=== PATIENT | male | born 1965 | race Caucasian/White ===

== ENCOUNTER 2016-09-24 22:12 | Emergency (ER) | payer OTHER ==
[2016-09-24] MEDS ORDERED: HYDROcod/ACETAM 5/325 MG TABLET PO STA (22:49)
[2016-09-24] MEDS ORDERED: HYDROcod/ACETAM 5/325 MG TABLET ONE (22:53)
[2016-09-24] MEDS ORDERED: HYDROcod/ACET 5/325 Prepack 6 PO ONE ×2 (23:00→23:04)
== END 2016-09-24 23:17 | disposition home or self-care (01) ==
DX: S91.331A Puncture wound without foreign body, right foot, initial encounter (principal); W45.8XXA Other foreign body or object entering through skin, initial encounter; Y92.019 Unspecified place in single-family (private) house as the place of occurrence of the external cause; E78.00 Pure hypercholesterolemia, unspecified
CPT/HCPCS: 99282; 99283; A9270

== ENCOUNTER 2017-04-03 12:42 | Outpatient (CLI) | payer OTHER ==
--- NOTE | 2017-04-03 16:34 | MRI Report ---
EXAM: LEFT SHOULDER MRI WITHOUT CONTRAST EXAM DATE: 04/03/2017 01:30 PM. CLINICAL HISTORY: Increased left shoulder pain. COMPARISON: None. TECHNIQUE: Multiplanar, multisequence T1-weighted and fluid-sensitive sequences of the shoulder witho ut contrast. Other: None. FINDINGS: Acromioclavicular Region: The acromion is moderate acromioclavicular osteoarthropathy is evidenced by bony hypertrophy. The acromioclavicular joint is unremarkable. The coracoacromial and coracoclavicul ar ligaments are intact. A minimal amount of fluid is in the subacromial/subdeltoid bursa. Glenohumeral Region: No subluxation. No effusion or loose bodies. The articular cartilage is unremark able. The glenohumeral ligaments and joint capsule are unremarkable. Bone Marrow: No fractures. There is cyst formation in the greater tuberosity. Labrum: The labrum is unremarkable on this nonarthrographic study. Musculature/Rotator Cuff: The subscapularis, supraspinatus, infraspinatus, and teres minor tendons ar e intact. No edema or fatty atrophy. Biceps Tendon: The long head of the biceps tendon and biceps jorge are intact. Other: The subcutaneous tissues are unremarkable. IMPRESSION: 1. Moderate acromioclavicular osteoarthropathy. 2. Minimal subacromial/subdeltoid bursitis. [facility] MUSCULOSKELETAL [facility]IOLOG[facility] SECTION Referring Provider Line: [phone] SITE ID: [id number]
== END 2017-04-03 12:43 | disposition home or self-care (01) ==
LOC: DI 12:42
PROVIDERS: ATTEND Internal Medicine
DX: M25.512 Pain in left shoulder (principal); M19.012 Primary osteoarthritis, left shoulder; M75.52 Bursitis of left shoulder

== ENCOUNTER 2017-06-23 14:06 | Emergency (ER) | payer OTHER ==
[2017-06-23 14:43] LABS: BASOPHILS # (AUTO) 0.1 10^3/uL (0.0-0.1); BASOPHILS % (AUTO) 0.9 %; EOSINOPHILS # (AUTO) 0.1 10^3/uL (0.0-0.7); EOSINOPHILS % (AUTO) 2.4 %; HCT - HEMATOCRIT 43.8 % (42.0-52.0); HGB - HEMOGLOBIN 14.5 g/dL (14.0-18.0); LYMPHOCYTES # (AUTO) 1.3 10^3/uL (1.5-3.5); LYMPHOCYTES % (AUTO) 21.4 %; MEAN CORPUSCULAR HEMOGLOBIN 29.8 pg (27.0-31.0); MEAN CORPUSCULAR HGB CONC 33.1 g/dL (32.0-36.0); MEAN PLATELET VOLUME 9.2 fL (7.4-11.4); MONOCYTES # (AUTO) 0.6 10^3/uL (0.0-1.0); MONOCYTES % (AUTO) 9.9 %; NEUTROPHILS # (AUTO) 4.1 10^3/uL (1.5-6.6); NEUTROPHILS % (AUTO) 65.4 %; NUCLEATED RED BLOOD CELLS AUTO 0.1 /100WBC; RED BLOOD COUNT 4.87 10^6/uL (4.70-6.10); RED CELL DISTRIBUTION WIDTH 13.8 % (12.0-15.0); UNCORRECTED WHITE BLOOD COUNT 6.2 x10^3/uL; WHITE BLOOD COUNT 6.2 x10^3/uL (4.8-10.8)
--- NOTE | 2017-06-23 14:48 | ED Physician Documentation ---
PD HPI ABD PAIN - Stated complaint Stated Complaint: NAUSA/WEAVER - Chief complaint Chief Complaint: Abd Pain - History obtained from History obtained from: Patient, Family - History of Present Illness Timing - onset: Other (51-year-old gentleman with chronic back pain and migraines who presents with a different and much worse than normal headache with sweats that started last night with intermittent right-sided numbness of the arm and leg and associated upper abdominal pain radiating to the back. He has a history of perforated esophageal ulcers and resultant surgery from same many years ago.) Review of Systems Ten Systems: 10 systems reviewed and negative Constitutional: reports: Chills, Fatigue, Sweats. denies: Fever Ears: reports: Tinnitus/ringing. denies: Ear pain Nose: denies: Rhinorrhea / runny nose Throat: denies: Sore throat Cardiac: denies: Palpitations Respiratory: denies: Dyspnea, Cough GI: reports: Abdominal Pain, Nausea. denies: Vomiting PD PAST MEDICAL HISTORY - Past Medical History Cardiovascular: High cholesterol Endocrine/Autoimmune: None Psych: Post traumatic stress disorder - Past Surgical History Past Surgical History: No - Present Medications Home Medications: Ambulatory Orders Medication Instructions Recorded Confirmed Venlafaxine [Effexor] 75 mg PO BID 09/24/16 06/23/17 Meloxicam 15 mg PO DAILY 06/23/17 06/23/17 Metoclopramide [Reglan] 10 mg PO Q6H PRN #20 tablet 06/23/17 Naproxen [Naprosyn] 06/23/17 Omeprazole 20 mg PO DAILY 06/23/17 06/23/17 Topiramate [Topamax] 06/23/17 - Allergies Allergies/Adverse Reactions: Allergies Allergy/AdvReac Type Severity Reaction Status Date / Time simvastatin Allergy Rash Verified 06/23/17 14:13 - Social History Does the pt smoke?: No Smoking Status: Never smoker Does the pt drink ETOH?: No Does the pt have substance abuse?: No - Family History Family history: reports: Non contributory - Immunizations Immunizations: TDAP >10years/unknown PD ED PE NORMAL - Vitals Vital signs reviewed: Yes (Hypertensive) - General General: Alert and oriented X 3, No acute distress - HEENT HEENT: PERRL, EOMI, Pharynx benign - Neck Neck: Supple, no meningeal sign, No bony TTP - Cardiac Cardiac: RRR, No murmur - Respiratory Respiratory: No respiratory distress, Clear bilaterally - Abdomen Abdomen: Normal bowel sounds, Soft, Non tender - Back Back: No CVA TTP, No spinal TTP - Derm Derm: Normal color, Warm and dry - Extremities Extremities: No edema, No calf tenderness / cord - Neuro Neuro: Alert and oriented X 3, creative developer 2-12 intact, No motor deficit, No sensory deficit, Other (NIHSS zero at 1440) - Psych Psych: Normal mood, Normal affect Results - Vitals Vitals: Vital Signs - 24 hr 06/23/17 06/23/17 06/23/17 14:14 16:09 17:35 Temperature 36.3 C L Heart Rate 102 H 57 L 63 Respiratory 18 18 15 Rate Blood Pressure 171/100 H 183/94 H 146/97 H O2 Saturation 98 100 96 Oxygen O2 Source Room air - EKG (time done) 1503 Rate: Rate (enter#) (57) Rhythm: NSR [place]: Normal Intervals: Normal NM QRS: Normal Ischemia: Q waves (inferior) Computer interpretation: Agree with computer - Labs Labs: Laboratory Tests 06/23/17 06/23/17 06/23/17 14:35 14:35 14:35 WBC 6.2 RBC 4.87 Hgb 14.5 Hct 43.8 MCV 90.0 MCH 29.8 MCHC 33.1 RDW 13.8 Plt Count 229 MPV 9.2 Neut # 4.1 Lymph # 1.3 L [place] # 0.6 Eos # 0.1 Baso # 0.1 Absolute Nucleated RBC 0.01 Nucleated RBC % 0.1 Sodium 141 Potassium 3.6 Chloride 110 Carbon Dioxide 20 L Anion Gap 11.0 BUN 17 Creatinine 0.9 Estimated GFR (MDRD) 89 Glucose 103 H Calcium 9.8 Total Bilirubin 0.5 AST 27 ALT 34 Alkaline Phosphatase 76 Troponin I < 0.04 Total Protein 8.3 H Albumin 5.0 Globulin 3.3 Albumin/Globulin Ratio 1.5 Lipase 45 Urine Color Urine Clarity Urine pH Ur Specific [place] Urine Protein Urine Glucose (UA) Urine Ketones Urine Occult Blood Urine Nitrite Urine Bilirubin Urine Urobilinogen Ur Leukocyte Esterase Ur Microscopic Review Urine Culture Comments 06/23/17 16:00 WBC RBC Hgb Hct MCV MCH MCHC RDW Plt Count MPV Neut # Lymph # [place] # Eos # Baso # Absolute Nucleated RBC Nucleated RBC % Sodium Potassium Chloride Carbon Dioxide Anion Gap BUN Creatinine Estimated GFR (MDRD) Glucose Calcium Total Bilirubin AST ALT Alkaline Phosphatase Troponin I Total Protein Albumin Globulin Albumin/Globulin Ratio Lipase Urine Color YELLOW Urine Clarity CLEAR Urine pH 7.0 Ur Specific [place] 1.015 Urine Protein NEGATIVE Urine Glucose (UA) NEGATIVE Urine Ketones NEGATIVE Urine Occult Blood NEGATIVE Urine Nitrite NEGATIVE Urine Bilirubin NEGATIVE Urine Urobilinogen 0.2 (NORMAL) Ur Leukocyte Esterase NEGATIVE Ur Microscopic Review NOT INDICATED Urine Culture Comments NOT INDICATED - Rads (name of study) CT Angio Chest/abd Radiology: EMP read contemporaneously (Distended stomach, mild left hydronephrosis without renal calculus.) PD MEDICAL DECISION MAKING - ED course ED course: 51-year-old gentleman presents with worse than normal headache, he does have chronic migraines, also chest and back pain. This was concerning for vascular etiology and CT of the head without contrast, chest abdomen and pelvis angio protocol all were done without relevant findings with the exception of a dilated stomach for which he was administered Reglan. Prior to this had received Imitrex subcu which had helped with the headache. Morphine prior to that which was also helpful. The Reglan was very helpful for his upper abdominal pain, he could have gastric outlet obstruction or gastroparesis based on his CAT scan. He is advised to follow-up with his doctor for repeat upper endoscopy, it has been about 20 years. Departure - Departure Disposition: 01 Home, Self Care Clinical Impression: Abdominal pain Qualifiers: Abdominal location: epigastric Qualified Code(s): R10.13 - Epigastric pain Head ache Qualifiers: Headache type: unspecified Headache chronicity pattern: acute headache Intractability: not intractable Qualified Code(s): R51 - Headache Condition: Good Record reviewed to determine appropriate education?: Yes Instructions: Abdominal Pain, ED Headache Migraine Prescriptions: Metoclopramide [Reglan] 10 mg PO Q6H PRN #20 tablet PRN Reason: Nausea / Vomiting Comments: Follow-up with your physician as discussed. I would recommend evaluation for an upper endoscopy based on the fact that your CAT scan did show very dilated stomach and you had relief with metoclopramide. He also have mild hydronephrosis on the left of unclear etiology without kidney stone. Your lab work including CBC, CMP, troponin, and urinalysis were unremarkable. Discharge Date/Time: 06/23/17 18:05
[2017-06-23 14:57] LABS: ALBUMIN/GLOBULIN RATIO 1.5 (1.0-2.2); BILIRUBIN,TOTAL 0.5 mg/dL (0.2-1.0); CALCIUM 9.8 mg/dL (8.5-10.3); CREATININE 0.9 mg/dL (0.6-1.2); POTASSIUM 3.6 mmol/L (3.5-5.0); TOTAL PROTEIN 8.3 g/dL (6.7-8.2)
[2017-06-23] MEDS ORDERED: MORPHINE 10 MG/ML VIAL IVP STA ×2 (14:58→17:10)
[2017-06-23] MEDS ORDERED: MORPHINE 10 MG/ML VIAL ONE ×2 (15:09→17:21)
[2017-06-23] MEDS ORDERED: IOPAMIDOL-300 100 ML VIAL ONE (15:21)
[2017-06-23] MEDS ORDERED: IOPAMIDOL-300 100 ML VIAL IVP ONE (15:46)
--- NOTE | 2017-06-23 15:56 | CT Preliminary Report ---
Exam: CT HEAD W/O IMPRESSION: 1. Mild nonfocal, nonspecific frontal lobe white matter disease. Differential diagnosis includes micr oangiopathy and other nonfocal white matter disease. 2. No intracranial hemorrhage, mass effect, or localizing edema. [facility] SITE ID: [id number]
--- NOTE | 2017-06-23 15:58 | CT Report ---
EXAM: CT HEAD EXAM DATE: 06/23/2017 03:36 PM. CLINICAL HISTORY: Headache. COMPARISON: None. TECHNIQUE: Multiaxial CT images were obtained from the foramen magnum to the vertex. IV contrast: Non e. Reformats: Coronal. In accordance with CT protocol optimization, one or more of the following dose reduction techniques w ere utilized for this exam: automated exposure control, adjustment of mA and/or KV based on patient s ize, or use of iterative reconstructive technique. FINDINGS: Parenchyma: There is mild frontal lobe periventricular white matter hypodensity. Negative for intracr anial acute hemorrhage. No midline shift or mass effect. Extraaxial Spaces: Normal for age. No subdural or epidural collections identified. Ventricles: Normal in size and position. Sinuses and orbits: Imaged paranasal sinuses, orbits, and mastoids show no significant abnormality. Bones: No evidence of fracture or calvarial defect. Other: None. IMPRESSION: 1. Mild nonfocal, nonspecific frontal lobe white matter disease. Differential diagnosis includes micr oangiopathy and other nonfocal white matter disease. 2. No intracranial hemorrhage, mass effect, or localizing edema. [facility] Referring Provider Line: [phone] SITE ID: [id number]
[2017-06-23 16:17] LABS: BILIRUBIN,URINE NEGATIVE (NEGATIVE); UA CHARGE (STRIP ONLY) YES; UR CULTURE IF IND NOT INDICATED
[2017-06-23] MEDS ORDERED: SUMAtriptan 6 MG/0.5 ML VIAL SUBQ STA (16:17)
[2017-06-23] MEDS ORDERED: SUMAtriptan 6 MG/0.5 ML VIAL SUBQ ONE (16:32)
--- NOTE | 2017-06-23 16:36 | CT Preliminary Report ---
Exam: CT CHEST ANGIO (AORTA) IMPRESSION: 1. No aneurysm or dissection. 2. Very distended stomach with large air-fluid level. Small and large bowel appears within normal marley its. The appendix is not seen. 3. Mild left hydronephrosis and dilated renal pelvis with decompressed ureter, could represent ureter opelvic junction obstruction. No urinary tract calculi are seen. [facility] SITE ID: [id number]
--- NOTE | 2017-06-23 16:36 | CT Preliminary Report ---
Exam: CT ABDOMEN/PELVIS ANGIO IMPRESSION: 1. No aneurysm or dissection. 2. Very distended stomach with large air-fluid level. Small and large bowel appears within normal marley its. The appendix is not seen. 3. Mild left hydronephrosis and dilated renal pelvis with decompressed ureter, could represent ureter opelvic junction obstruction. No urinary tract calculi are seen. [facility] SITE ID: [id number]
--- NOTE | 2017-06-23 16:39 | CT Report ---
<H1.> EXAM: CT ANGIOGRAM CHEST, ABDOMEN AND PELVIS EXAM DATE: 06/23/2017 03:51 PM. CLINICAL HISTORY: Chest/abdomen/back pain. COMPARISONS: None. TECHNIQUE: Routine axial helical CT angiographic imaging was performed through the chest, abdomen, and pelvis. I V Contrast: 100 mL Isovue 300. Reconstructions: Coronal, sagittal, and 3D MIP reconstructions of the aorta. In accordance with CT protocol optimization, one or more of the following dose reduction techniques w ere utilized for this exam: automated exposure control, adjustment of mA and/or KV based on patient s ize, or use of iterative reconstructive technique. FINDINGS: Vascular Structures: Normal. No aneurysm, dissection, or significant atherosclerotic disease of the t horacic aorta, abdominal aorta, or iliac arteries. The visualized pulmonary, mesenteric, and solid or christian vascular structures are also within normal limits. Lungs/Pleura: No consolidation, nodules, or edema. No effusions or pneumothorax. Mediastinum: Normal. No cardiac enlargement or adenopathy. Abdominal Organs: Liver: Multiple small scattered nonspecific low densities seen in the liver, larges t in the left hepatic lobe measuring 1.5 cm, could represent liver cyst. Gallbladder: Normal. Bile ducts: Normal. Pancreas: Normal. Spleen: Normal. Adrenals: Normal. Kidneys: Mild left hydronephrosis and dilated renal pelvis with decompressed ureter, could represent ureteropelvic junction obstruction. No urinary tract calculi are seen. Right kidney appears unremarka ble. Peritoneal Cavity: Very distended stomach with large air-fluid level. Small and large bowel appears w ithin normal limits. The appendix is not seen. No free fluid or free air. No abscess. Pelvic Organs: Normal. The bladder and visualized pelvic organs are within normal limits. Bones: No acute bone findings. IMPRESSION: 1. No aneurysm or dissection. 2. Very distended stomach with large air-fluid level. Small and large bowel appears within normal marley its. The appendix is not seen. 3. Mild left hydronephrosis and dilated renal pelvis with decompressed ureter, could represent ureter opelvic junction obstruction. No urinary tract calculi are seen. [facility] Referring Provider Line: [phone] SITE ID: [id number]
[2017-06-23] MEDS ORDERED: METOCLOPRAMIDE 10 MG/2 ML VIAL IVP STA (17:10)
[2017-06-23] MEDS ORDERED: METOCLOPRAMIDE 10 MG/2 ML VIAL ONE (17:21)
[2017-06-23 17:38] VITALS: BP 146/97
== END 2017-06-23 18:05 | disposition home or self-care (01) ==
LOC: ED 14:06
DX: R51 Headache (principal); R10.13 Epigastric pain; N13.30 Unspecified hydronephrosis; E78.00 Pure hypercholesterolemia, unspecified
CPT/HCPCS: 36415; 70450; 71275; 74174; 80053; 81003; 83690; 84484; 85025; 93005; 96372; 96374; 96375; 96376; 99283; 99285; Q9967; 81001; 87086

== ENCOUNTER 2017-07-21 12:59 | Outpatient (CLI) | payer OTHER ==
--- NOTE | 2017-07-21 16:14 | MRI Report ---
EXAM: LEFT KNEE MRI WITHOUT CONTRAST EXAM DATE: 07/21/2017 01:50 PM. CLINICAL HISTORY: Left knee pain. COMPARISON: None. TECHNIQUE: Multiplanar, multisequence T1-weighted and fluid-sensitive sequences of the knee without c ontrast. Other: None. FINDINGS: Bones: No fractures or subluxations. No marrow edema. No bone lesions. Articular Cartilage: Unremarkable. Medial Meniscus: The medial meniscus is intact. Lateral Meniscus: The lateral meniscus is intact. Cruciate Ligaments: The anterior and posterior cruciate ligaments are intact. Collateral Ligaments: The medial collateral and lateral collateral ligamentous structures are intact. Tendons: The quadriceps, patellar, semimembranosus, and popliteus tendons are unremarkable. Musculature: No edema or fatty atrophy. Other: No effusion. No popliteal cyst. No loose bodies. In the intercondylar notch along the posteri or margin of the distal ACL, a small cystic structure is present. Please see series 501 image 15, ser ies 401 image 15. This measures about 9 mm maximally. The medial and lateral retinacula are intact. T he subcutaneous tissues and fat pads are unremarkable. IMPRESSION: 1. Menisci, cruciates and collaterals appear unremarkable. Bones and articular surfaces also appear n ormal. No popliteal cyst or loose bodies. 2. In the intercondylar notch at the posterior margin of the distal ACL, there is a small cystic stru cture which is probably a benign ganglion. No convincing evidence for impingement. The posterior late ral meniscus is normal at this level without evidence for tear. [facility] MUSCULOSKELETAL RADIOLOGY SECTION Referring Provider Line: [phone] SITE ID: [id number]
== END 2017-07-21 13:00 | disposition home or self-care (01) ==
LOC: DI 12:59
PROVIDERS: ATTEND Internal Medicine
DX: M25.562 Pain in left knee (principal); R22.42 Localized swelling, mass and lump, left lower limb

== ENCOUNTER 2017-08-04 13:25 | Outpatient (CLI) | payer OTHER | END 2017-08-04 13:26 | disposition home or self-care (01) | LOC: SC 13:25 | PROVIDERS: ATTEND Internal Medicine Pulmonary Disease | DX: G47.33 Obstructive sleep apnea (adult) (pediatric) (principal) | CPT/HCPCS: 99203; 99212 ==

== ENCOUNTER 2017-09-28 13:01 | Outpatient (CLI) | payer OTHER | END 2017-09-28 13:02 | disposition home or self-care (01) | LOC: SC 13:01 | PROVIDERS: ATTEND Internal Medicine Pulmonary Disease | DX: G47.33 Obstructive sleep apnea (adult) (pediatric) (principal) | CPT/HCPCS: 99212; 99213 ==

== ENCOUNTER 2017-10-14 21:36 | Outpatient (CLI) | payer OTHER | END 2017-10-14 21:37 | disposition home or self-care (01) | LOC: SC 21:36 | PROVIDERS: ATTEND Internal Medicine Pulmonary Disease | DX: G47.33 Obstructive sleep apnea (adult) (pediatric) (principal) | CPT/HCPCS: 95811 ==

== ENCOUNTER 2017-11-11 16:24 | Outpatient (CLI) | payer OTHER ==
[~2017-11-11 16:24] MED LIST: GADOBUTROL 10 MMOL/10 ML VIAL ONE
[2017-11-11] MEDS ORDERED: GADOBUTROL 10 MMOL/10 ML VIAL IVP ONE (17:01)
--- NOTE | 2017-11-11 20:46 | MRI Report ---
EXAM: MRI LUMBAR SPINE WITHOUT AND WITH CONTRAST EXAM DATE: 11/11/2017 05:07 PM. CLINICAL HISTORY: Worsening lower back and sacroiliac pain. Pain radiating down both legs. COMPARISONS: None. TECHNIQUE: Multiplanar, multisequence T1-weighted and fluid-sensitive sequences of the lumbar spine f rom T12 to S1 before and after administration of intravenous contrast. Other: None. IV contrast: 10 m L Gadavist. FINDINGS: Spinal Cord: The conus terminates at L1-L2. The conus medullaris and cauda equina are unremarkable. T he spinal canal is adequate. Alignment: No scoliosis or spondylolisthesis. Bone Marrow: Five chi-axy-odgkryl lumbar vertebral bodies are assumed. No gross fractures or bone les ions. No bone marrow edema or abnormal enhancement. Disk Levels/Facets: T12-L1: Unremarkable on sagittal series. L1-L2: Unremarkable on sagittal series. L2-L3: Unremarkable. T2 hypointense disk signal is seen. Minimal old endplate Schmorl's node formatio n is seen. L3-L4: Unremarkable. T2 hypointense disk signal is seen. Minimal old endplate Schmorl's node formatio n is seen. L4-L5: Mild loss of disk space height. Mild endplate Schmorl's node formation with focal edema and en hancement. No disk bulge or protrusion. No stenosis. L5-S1: Mild anterior thickening of the ligamentum flavum is noted. T2 hypointense disk signal is seen . Peripheral Modic type II diskogenic endplate signal change is seen. Mild dorsal and lateral disk bu lge. Mild effacement of exiting L5 nerve roots is seen. Mild left foraminal stenosis. Spinal Canal: No enhancing masses within the spinal canal. No epidural abscess. Musculature: Normal. No edema, abnormal enhancement, or fatty atrophy. Other: The visualized retroperitoneum is unremarkable. IMPRESSION: 1. Mild spondylosis throughout the mid and lower lumbar spine as noted above. 2. Acute small endplate Schmorl's node formation at L4-L5. 3. L5-S1: Mild degenerative disk and facet change. Left mild foraminal stenosis with effacement of ex iting left L5 nerve root. Right mild foraminal narrowing. Comment: The following findings are so common in adults without low back pain that while we report th eir presence, they must be interpreted with caution and in the context of the clinical situation. (Re [place] Srinivasan et al, Spine 2001) Prevalence of findings in patients without low back pain: Disk degeneration (any evidence): 92% Disk desiccation/T2 signal loss: 83% Disk height loss: 56% Disk bulge: 64% Disk protrusion: 32% Annular tear/high intensity zone: 38% [facility] Referring Provider Line: [phone] SITE ID: [id number]
== END 2017-11-11 16:25 | disposition home or self-care (01) ==
LOC: DI 16:24
PROVIDERS: ATTEND Internal Medicine
DX: M47.896 Other spondylosis, lumbar region (principal); M51.36 Other intervertebral disc degeneration, lumbar region; M51.37 Other intervertebral disc degeneration, lumbosacral region; M47.897 Other spondylosis, lumbosacral region; M51.46 Schmorl's nodes, lumbar region
CPT/HCPCS: 72158; A9585

== ENCOUNTER 2017-11-16 10:14 | Outpatient (CLI) | payer OTHER | END 2017-11-16 10:15 | disposition home or self-care (01) | LOC: SC 10:14 | PROVIDERS: ATTEND Nurse Practitioner Family | DX: G47.33 Obstructive sleep apnea (adult) (pediatric) (principal) | CPT/HCPCS: 99212; 99214 ==

== ENCOUNTER 2017-11-28 19:08 | Emergency (ER) | payer OTHER ==
[2017-11-28] MEDS ORDERED: PROPARACAINE 0.5% OPHTH DROPS 15 ML EACHEYE STA (19:12)
[2017-11-28 19:15] VITALS: BP 151/93
--- NOTE | 2017-11-28 19:24 | ED Physician Documentation ---
PD HPI OPHTHO - Stated complaint Stated Complaint: FB IN EYE - Chief complaint Chief Complaint: Heent - History obtained from History obtained from: Patient - History of Present Illness Timing - onset: Other (Without specific injury he has had foreign body sensation without visual deficit to the left eye since 2 PM today.) Review of Systems Constitutional: denies: Fever, Chills GI: denies: Nausea, Vomiting : denies: Dysuria, Frequency PD PAST MEDICAL HISTORY - Past Medical History Past Medical History: Yes Cardiovascular: High cholesterol Endocrine/Autoimmune: None Psych: Post traumatic stress disorder - Past Surgical History Past Surgical History: No General: Appendectomy, Gastric surgery, Hiatal hernia repair - Present Medications Home Medications: Ambulatory Orders Medication Instructions Recorded Confirmed Venlafaxine [Effexor] 75 mg PO BID 09/24/16 06/23/17 Meloxicam 15 mg PO DAILY 06/23/17 06/23/17 Metoclopramide [Reglan] 10 mg PO Q6H PRN #20 tablet 06/23/17 Naproxen [Naprosyn] 06/23/17 Omeprazole 20 mg PO DAILY 06/23/17 06/23/17 Topiramate [Topamax] 06/23/17 - Allergies Allergies/Adverse Reactions: Allergies Allergy/AdvReac Type Severity Reaction Status Date / Time simvastatin Allergy Rash Verified 11/28/17 19:16 - Social History Does the pt smoke?: No Smoking Status: Never smoker Does the pt drink ETOH?: No Does the pt have substance abuse?: No - Immunizations Immunizations are current?: No Immunizations: TDAP >10years/unknown - POLST Patient has POLST: No PD ED PE NORMAL - Vitals Vital signs reviewed: Yes - General General: Alert and oriented X 3, No acute distress - HEENT HEENT: PERRL, EOMI, Other (On the left eye laterally there is a crescent of fluorescein uptake consistent with a skating rink type pattern from a foreign body under the upper lid which is not present on evaluation at this time.) - Neck Neck: Supple, no meningeal sign, No bony TTP - Neuro Neuro: Alert and oriented X 3, Normal speech Results - Vitals Vitals: Vital Signs - 24 hr 11/28/17 19:10 Temperature 36.6 C Heart Rate 67 Respiratory 12 Rate Blood Pressure 151/93 H O2 Saturation 99 Oxygen O2 Source Room air Departure - Departure Disposition: Home, Self Care Clinical Impression: Corneal abrasion, left Qualifiers: Encounter type: initial encounter Qualified Code(s): S05.02XA - Injury of conjunctiva and corneal abrasion without foreign body, left eye, initial encounter Condition: Good Record reviewed to determine appropriate education?: Yes Instructions: ED Eye Injury Corneal Abrasion Follow-Up: Felipe Storey MD [Provider Admit Priv/Credential] - Within 3 Days Comments: Use the antibiotic ointment 4 times a day for the next 4 days, return if worse. Your blood pressure was elevated today on check into the emergency department. This does not mean that you have hypertension, it is a common phenomenon to come to the emergency department and have elevated blood pressure. I recommend that you see your primary care physician within the week to have it rechecked when you are feeling better.
[2017-11-28] MEDS ORDERED: ERYTHROMYCIN OPHTH OINT 1 GM TUBE LEFTEYE STA (19:25)
== END 2017-11-28 19:32 | disposition home or self-care (01) ==
LOC: ED 19:08
DX: S05.02XA Injury of conjunctiva and corneal abrasion without foreign body, left eye, initial encounter (principal); W22.8XXA Striking against or struck by other objects, initial encounter; E78.00 Pure hypercholesterolemia, unspecified; R03.0 Elevated blood-pressure reading, without diagnosis of hypertension
CPT/HCPCS: 99283; J3490

== ENCOUNTER 2017-12-28 09:51 | Outpatient (CLI) | payer OTHER | END 2017-12-28 09:52 | disposition home or self-care (01) | LOC: SC 09:51 | PROVIDERS: ATTEND Nurse Practitioner Family | DX: G47.33 Obstructive sleep apnea (adult) (pediatric) (principal) | CPT/HCPCS: 99212; 99214 ==

== ENCOUNTER 2018-02-10 10:22 | Outpatient (CLI) | END 2018-02-10 10:23 | disposition home or self-care (01) ==

== ENCOUNTER 2018-07-19 13:47 | Emergency (ER) | payer OTHER ==
[2018-07-19 14:21] VITALS: BP 149/92
--- NOTE | 2018-07-19 14:45 | ED Physician Documentation ---
PD HPI FOCAL NEURO - Stated complaint Stated Complaint: LOWER BACK PX - Chief complaint Chief Complaint: Back Pain PD PAST MEDICAL HISTORY - Past Medical History Cardiovascular: High cholesterol Endocrine/Autoimmune: None Psych: Post traumatic stress disorder - Past Surgical History Past Surgical History: No General: Appendectomy, Gastric surgery, Hiatal hernia repair - Present Medications Home Medications: Ambulatory Orders Medication Instructions Recorded Confirmed Venlafaxine [Effexor] 75 mg PO BID 09/24/16 06/23/17 Meloxicam 15 mg PO DAILY 06/23/17 06/23/17 Metoclopramide [Reglan] 10 mg PO Q6H PRN #20 tablet 06/23/17 Naproxen [Naprosyn] 06/23/17 Omeprazole 20 mg PO DAILY 06/23/17 06/23/17 Topiramate [Topamax] 06/23/17 - Allergies Allergies/Adverse Reactions: Allergies Allergy/AdvReac Type Severity Reaction Status Date / Time simvastatin Allergy Rash Verified 07/19/18 14:21 - Social History Does the pt smoke?: No Smoking Status: Never smoker Does the pt drink ETOH?: No Does the pt have substance abuse?: No - Immunizations Immunizations are current?: No Immunizations: TDAP >10years/unknown - POLST Patient has POLST: No Results - Vitals Vitals: Vital Signs - 24 hr 07/19/18 14:17 Temperature 36.5 C Heart Rate 62 Respiratory 18 Rate Blood Pressure 149/92 H O2 Saturation 97 Oxygen O2 Source Room air
--- NOTE | 2018-07-19 14:46 | ED Physician Documentation ---
PD HPI BACK PAIN - Stated complaint Stated Complaint: LOWER BACK PX - Chief complaint Chief Complaint: Back Pain - History obtained from History obtained from: Patient - History of Present Illness Timing - onset: Yesterday Timing - details: Gradual onset, Still present Location: Lower, Left Quality: Pain, Spasm Associated symptoms: No: Fever, Weakness, Numbness, Incontinent of urine Improves with: Rest Worsened by: Movement Contributing factors: Twisting. No: Trauma Similar symptoms before: Diagnosis (low back pain due to disc problems in the past. No ongoing meds.) Recently seen: Not recently seen Review of Systems Constitutional: denies: Fever, Chills, Myalgias Throat: denies: Sore throat Respiratory: denies: Cough GI: denies: Abdominal Pain, Nausea, Vomiting, Diarrhea : denies: Dysuria, Frequency, Incontinent, Hematuria Skin: denies: Rash, Lesions Neurologic: denies: Focal weakness, Numbness PD PAST MEDICAL HISTORY - Past Medical History Cardiovascular: High cholesterol Endocrine/Autoimmune: None Psych: Post traumatic stress disorder Musculoskeletal: Chronic back pain - Past Surgical History Past Surgical History: No General: Appendectomy, Gastric surgery, Hiatal hernia repair - Present Medications Home Medications: Ambulatory Orders Medication Instructions Recorded Confirmed Venlafaxine [Effexor] 75 mg PO BID 09/24/16 06/23/17 Meloxicam 15 mg PO DAILY 06/23/17 06/23/17 Metoclopramide [Reglan] 10 mg PO Q6H PRN #20 tablet 06/23/17 Naproxen [Naprosyn] 06/23/17 Omeprazole 20 mg PO DAILY 06/23/17 06/23/17 Topiramate [Topamax] 06/23/17 Dexamethasone [Decadron] 4 mg PO DAILY #5 tablet 07/19/18 Hydrocodone/Acetaminophen [Parsons 1 each PO Q6H PRN #20 tablet 07/19/18 7.5-325 Tablet] diazePAM [Diazepam] 5 mg PO TID PRN #15 tablet 07/19/18 - Allergies Allergies/Adverse Reactions: Allergies Allergy/AdvReac Type Severity Reaction Status Date / Time simvastatin Allergy Rash Verified 07/19/18 14:21 - Social History Does the pt smoke?: No Smoking Status: Never smoker Does the pt drink ETOH?: No Does the pt have substance abuse?: No - Immunizations Immunizations are current?: No Immunizations: TDAP >10years/unknown - POLST Patient has POLST: No PD ED PE NORMAL - Vitals Vital signs reviewed: Yes - General General: Alert and oriented X 3, Well developed/nourished - Cardiac Cardiac: RRR, No murmur - Respiratory Respiratory: Clear bilaterally - Abdomen Abdomen: Soft, Non tender - Male Male : Deferred - Rectal Rectal: Deferred - Back Back: No CVA TTP, No spinal TTP, Other (left lower lumbar area tenderness near SI joint. No skin sores nor lesions. No superficial tendrness. ) Results - Vitals Vitals: Oxygen O2 Source Room air PD MEDICAL DECISION MAKING - ED course Complexity details: considered differential (low back pain with history of such, and no red flags. ), d/w patient Departure - Departure Disposition: 01 Home, Self Care Clinical Impression: Acute exacerbation of chronic low back pain Condition: Stable Record reviewed to determine appropriate education?: Yes Instructions: ED Low Back Pain Injury Follow-Up: Andrew Wright MD [Primary Care Provider] - Prescriptions: Dexamethasone [Decadron] 4 mg PO DAILY #5 tablet diazePAM [Diazepam] 5 mg PO TID PRN #15 tablet PRN Reason: Spasms Hydrocodone/Acetaminophen [Parsons 7.5-325 Tablet] 1 each PO Q6H PRN #20 tablet PRN Reason: Pain Comments: Heat and gentle stretching for the area. Continue usual medications. Add Decadron steroid daily for 5 more days. Use diazepam instead of Robaxin muscle relaxant for the next 5 days to see if it helps better with stiffness and spasms. At hydrocodone if needed for pains. Follow-up with your primary care if not improving over the next few days to a week. Return if worsening or other symptoms develop. Discharge Date/Time: 07/19/18 15:41
[2018-07-19] MEDS: KETOROLAC 60 MG/2 ML VIAL IM STA (15:13)
[2018-07-19] MEDS: ACETAMINOPHEN 325 MG TABLET PO STA (15:16)
[2018-07-19] MEDS: TRIAMCINOLONE 40 MG/ML VIAL IM STA (15:17)
== END 2018-07-19 15:41 | disposition home or self-care (01) ==
LOC: ED 13:47
DX: M54.5 Low back pain (principal); G89.29 Other chronic pain; E78.00 Pure hypercholesterolemia, unspecified
CPT/HCPCS: 96372; 99283

== ENCOUNTER 2019-01-02 19:22 | Outpatient (CLI) | payer OTHER | END 2019-01-02 19:23 | disposition critical access hospital (66) | LOC: EMS 19:22 | PROVIDERS: ATTEND Surgery | DX: S21.112A Laceration without foreign body of left front wall of thorax without penetration into thoracic cavity, initial encounter (principal); X99.1XXA Assault by knife, initial encounter | CPT/HCPCS: A0425; A0429 ==

== ENCOUNTER 2019-01-02 19:34 | Emergency (ER) | payer OTHER ==
[2019-01-02] MEDS ORDERED: TETANUS/DIPHTHERIA/PERTUSSIS 0.5 ML SYRINGE IM ONE (19:45)
[2019-01-02] MEDS ORDERED: BUFFERED LIDOCAINE 10 ML SYRINGE ONE (19:46)
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
[2019-01-02] MEDS ORDERED: LIDOCAINE 1%-EPI 1:100000 30 ML MDV ONE (20:08)
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
[2019-01-02 21:17] VITALS: BP 165/101
== END 2019-01-02 21:16 | disposition home or self-care (01) ==
LOC: EDUNIT# → ED 19:34
DX: S21.112A Laceration without foreign body of left front wall of thorax without penetration into thoracic cavity, initial encounter (principal); X99.1XXA Assault by knife, initial encounter; Z23 Encounter for immunization; R03.0 Elevated blood-pressure reading, without diagnosis of hypertension
CPT/HCPCS: 12002; 71045; 90471; 99283; 99284

== ENCOUNTER 2019-05-23 01:47 | Emergency (ER) | payer OTHER ==
--- NOTE | 2019-05-23 02:40 | ED Physician Documentation ---
PD HPI HEADACHE - Stated complaint Stated Complaint: WEAVER/FACE PX - Chief complaint Chief Complaint: Neuro - History obtained from History obtained from: Patient - History of Present Illness Timing - onset: How many days ago (3) Timing - onset during: Light activity Timing - details: Gradual onset, Waxing and waning Pain level now: 6 Worst headache ever?: No: Worst headache ever? Location: Global Quality: Throbbing, Aching Associated symptoms: No: Fever, Stiff neck, Nausea, Vomiting, Weakness, Numbness, Syncope, Seizure, Eye pain, Vision changes Improved by: Nothing Worsened by: Other (no exacerbating factors) Similar symptoms before: Diagnosis (migraine) Recently seen: Not recently seen - Additional information Additional information: Patient complains of three days of generalized headache bilaterally. He took his sumatriptan and naproxen at symptom onset with improvement. However, he has gradually had worsening of his generalized headachesince that time, and states this headache is not his worst headache but different from his typical migraine. He is concerned because his girlfriend had similar headaches that were revealed to be caused by aneurysms. Review of Systems Constitutional: reports: Reviewed and negative Eyes: reports: Reviewed and negative Ears: reports: Reviewed and negative GI: denies: Nausea, Vomiting Neurologic: reports: Headache. denies: Generalized weakness, Focal weakness, Numbness PD PAST MEDICAL HISTORY - Past Medical History Cardiovascular: High cholesterol Respiratory: Sleep apnea, CPAP use Neuro: Migraines Endocrine/Autoimmune: None GI: None : None HEENT: Other Psych: Post traumatic stress disorder Musculoskeletal: Chronic back pain Derm: None Other Past Medical History: tinnitus with hearing aids. - Past Surgical History Past Surgical History: No General: Appendectomy, Gastric surgery, Hiatal hernia repair HEENT: Tonsil/Adenoidectomy - Present Medications Home Medications: Ambulatory Orders Medication Instructions Recorded Confirmed Venlafaxine [Effexor] 75 mg PO BID 09/24/16 06/23/17 Meloxicam 15 mg PO DAILY 06/23/17 06/23/17 Naproxen [Naprosyn] 06/23/17 Topiramate [Topamax] 06/23/17 Methocarbamol 05/23/19 SUMAtriptan [Imitrex] 50 mg PO ONCE 05/23/19 05/23/19 - Allergies Allergies/Adverse Reactions: Allergies Allergy/AdvReac Type Severity Reaction Status Date / Time simvastatin Allergy Rash Verified 05/23/19 01:55 - Social History Does the pt smoke?: No Smoking Status: Never smoker Does the pt drink ETOH?: No Does the pt have substance abuse?: No - Immunizations Immunizations are current?: No Immunizations: TDAP >10years/unknown - POLST Patient has POLST: No PD ED PE NORMAL - Vitals Vital signs reviewed: Yes - General General: Alert and oriented X 3, No acute distress, Well developed/nourished - HEENT HEENT: PERRL, EOMI - Neck Neck: Supple, no meningeal sign - Cardiac Cardiac: RRR, No murmur - Respiratory Respiratory: No respiratory distress, Clear bilaterally - Neuro Neuro: Alert and oriented X 3, inclusion teacher 2-12 intact, No motor deficit, No sensory deficit, Normal speech Eye Opening: Spontaneous Motor: Obeys Commands Verbal: Oriented GCS Score: 15 Results - Vitals Vitals: Oxygen O2 Source Room air - Rads (name of study) CT head Radiology: Prelim report reviewed, See rad report PD MEDICAL DECISION MAKING - ED course Complexity details: reviewed results, re-evaluated patient, considered differential, d/w patient Departure - Departure Disposition: 01 Home, Self Care Clinical Impression: Head ache Qualifiers: Headache type: unspecified Headache chronicity pattern: acute headache Intractability: not intractable Qualified Code(s): R51 - Headache Condition: Good Instructions: ED Cephalgia Unspecified Discharge Date/Time: 05/23/19 05:16
[2019-05-23] MEDS ORDERED: KETOROLAC 60 MG/2 ML VIAL IM STA (03:08)
--- NOTE | 2019-05-23 03:54 | CT Report ---
Reason: headache Procedure Date: 05/23/2019 Accession Number: [id number] / [id number] Procedure: CT - HEAD WO CPT Code: FULL RESULT: EXAM: CT HEAD EXAM DATE: 05/23/2019 03:17 AM. CLINICAL HISTORY: Headache. COMPARISON: HEAD W/O 06/23/2017 3:30 PM. TECHNIQUE: Multiaxial CT images were obtained from the foramen magnum to the vertex. Reformats: Sagittal and coronal. IV contrast: None. In accordance with CT protocol optimization, one or more of the following dose reduction techniques were utilized for this exam: automated exposure control, adjustment of mA and/or KV based on patient size, or use of iterative reconstructive technique. FINDINGS: Parenchyma: No intraparenchymal hemorrhage. No evidence of mass, midline shift, or CT findings of infarction. Floyd-white differentiation is distinct. Periventricular white matter hypoattenuation, most consistent with chronic ischemic changes. Extraaxial Spaces: No subdural or epidural collections identified. Ventricles: No hydrocephalus. Sinuses and Orbits: Imaged paranasal sinuses, orbits, and mastoids show no significant abnormality. Bones: No evidence of fracture or calvarial defect. Other: None. IMPRESSION: 1. No acute intracranial findings. 2. Chronic microangiopathic white matter changes. RADIA
[2019-05-23 05:09] VITALS: BP 132/93
== END 2019-05-23 05:16 | disposition home or self-care (01) ==
LOC: ED 01:47
DX: R51 Headache (principal)
CPT/HCPCS: 70450; 96372; 99282; 99284

== ENCOUNTER 2021-05-24 16:03 | Emergency (ER) | payer OTHER ==
--- NOTE | 2021-05-24 16:44 | XRAY Report ---
PROCEDURE: Chest 1 View X-Ray INDICATIONS: cough TECHNIQUE: One view of the chest was acquired. COMPARISON: 01/02/2019 FINDINGS: Surgical changes and devices: None. Lungs and pleura: No pleural effusions or pneumothorax. Lungs are clear. Mediastinum: Mediastinal contours appear normal. Heart size is normal. Bones and chest wall: No suspicious bony lesions. Overlying soft tissues appear unremarkable. IMPRESSION: No acute cardiopulmonary pathology. Reviewed by: José Miguel Luna MD on 05/24/2021 4:43 PM PDT Approved by: José Miguel Luna MD on 05/24/2021 4:43 PM PDT Station ID: [id number]
[2021-05-24] MEDS ORDERED: ALBUTEROL 1 PUFF INH STA (17:07)
--- NOTE | 2021-05-24 17:09 | ED Physician Documentation ---
PD HPI URI - Stated complaint Stated Complaint: COUGH, LOWER LEFT RIB PAIN - Chief complaint Chief Complaint: Resp - History obtained from History obtained from: Patient - History of Present Illness Timing - onset: How many weeks ago (3) Timing duration: Weeks (3) Timing details: Gradual onset Pain level max: 5 Pain level now: 3 Associated symptoms: Nasal congestion, Rhinorrhea, Productive cough (white). No: Fever, Chills Contributing factors: Sick contact Improves by: Rest Worsened by: Activity, Breathing Recently seen: Not recently seen Review of Systems GI: denies: Vomiting, Diarrhea Musculoskeletal: denies: Neck pain, Back pain Neurologic: denies: Headache PD PAST MEDICAL HISTORY - Past Medical History Cardiovascular: High cholesterol Respiratory: Sleep apnea, CPAP use Neuro: Migraines Endocrine/Autoimmune: None GI: None : None HEENT: Other Psych: Post traumatic stress disorder Musculoskeletal: Chronic back pain Derm: None - Past Surgical History Past Surgical History: No General: Appendectomy, Gastric surgery, Hiatal hernia repair HEENT: Tonsil/Adenoidectomy - Present Medications Home Medications: Ambulatory Orders Medication Instructions Recorded Confirmed Venlafaxine [Effexor] 75 mg PO BID 09/24/16 06/23/17 Meloxicam 15 mg PO DAILY 06/23/17 06/23/17 Naproxen [Naprosyn] 06/23/17 Topiramate [Topamax] 06/23/17 SUMAtriptan [Imitrex] 50 mg PO ONCE 05/23/19 05/23/19 methocarbamoL [Methocarbamol] 05/23/19 Albuterol Sulf [Ventolin Hfa 1 - 2 puffs INH Q4HR PRN #1 inhaler 05/24/21 Inhaler] Benzonatate [Tessalon] 200 mg PO TID PRN #30 cap 05/24/21 Doxycycline Monohydrate 100 mg PO BID #20 cap 05/24/21 - Allergies Allergies/Adverse Reactions: Allergies Allergy/AdvReac Type Severity Reaction Status Date / Time simvastatin Allergy Rash Verified 05/24/21 16:13 - Social History Does the pt smoke?: No Smoking Status: Never smoker Does the pt drink ETOH?: No Does the pt have substance abuse?: No - Immunizations Immunizations are current?: No Immunizations: TDAP >10years/unknown - POLST Patient has POLST: No PD ED PE NORMAL - Vitals Vital signs reviewed: Yes - General General: Alert and oriented X 3, No acute distress, Well developed/nourished - HEENT HEENT: PERRL, Ears normal, Moist mucous membranes - Neck Neck: Supple, no meningeal sign - Cardiac Cardiac: RRR, Strong equal pulses - Respiratory Respiratory: No respiratory distress, Clear bilaterally - Abdomen Abdomen: Soft, Non tender, Non distended - Derm Derm: Warm and dry - Extremities Extremities: No edema - Neuro Neuro: Alert and oriented X 3 - Psych Psych: Normal mood, Normal affect Results - Vitals Vitals: Vital Signs - 24 hr 05/24/21 16:09 Temperature 36.2 C L Heart Rate 81 Respiratory 14 Rate Blood Pressure 157/100 H O2 Saturation 95 Oxygen O2 Source Room air - Rads (name of study) Chest x-ray Radiology: Final report received, EMP read contemporaneously, See rad report (No acute abnormality) PD MEDICAL DECISION MAKING - ED course Complexity details: reviewed results, re-evaluated patient, considered differential, d/w patient ED course: 55-year-old male presents to the emergency department with a cough ongoing for the past 3 weeks. He states he does not smoke but is around people who do smoke regularly. Has never used inhalers, but does feel better after utilizing albuterol here. Will prescribe inhaler for home. Given the duration of the cough, we will trial on antibiotics to see if this improves his symptoms. Patient is well-appearing, nontoxic. Afebrile. No hypoxia or respiratory distress. Has received both of his Covid vaccinations. Patient counseled regarding signs and symptoms for which I believe and urgent re-evaluation would be necessary. Patient with good understanding of and agreement to plan and is comfortable going home at this time This document was made in part using voice recognition software. While efforts are made to proofread this document, sound alike and grammatical errors may occur. Departure - Departure Disposition: 01 Home, Self Care Clinical Impression: Upper respiratory infection Qualifiers: URI type: unspecified URI Qualified Code(s): J06.9 - Acute upper respiratory infection, unspecified Condition: Good Instructions: ED Upper Resp Infec Abx Tx Follow-Up: your,doctor in 1 week [Other] Prescriptions: Albuterol Sulf [Ventolin Hfa Inhaler] 1 - 2 puffs INH Q4HR PRN #1 inhaler PRN Reason: Shortness Of Air/Wheezing Doxycycline Monohydrate 100 mg PO BID #20 cap Benzonatate [Tessalon] 200 mg PO TID PRN #30 cap PRN Reason: Cough Comments: Your prescriptions were sent to [facility] in [place]. Take all antibiotics until gone. Return if you worsen. Follow-up with your doctor as needed for further care. Your x-ray does not show any acute abnormalities today
[2021-05-24 18:18] VITALS: BP 139/87
== END 2021-05-24 18:25 | disposition home or self-care (01) ==
LOC: ED 16:03
DX: J06.9 Acute upper respiratory infection, unspecified (principal)
CPT/HCPCS: 94640; 99283

== ENCOUNTER 2021-08-14 15:43 | Emergency (ER) | payer OTHER ==
[2021-08-14] MEDS ORDERED: predniSONE 20 MG TABLET PO STA (16:18)
--- NOTE | 2021-08-14 16:36 | ED Physician Documentation ---
History of Present Illness - Stated complaint Stated Complaint: SOA/CHEST TIGHT - Chief complaint Chief Complaint: Resp - History obtained from History obtained from: Patient - History of Present Illness Pain level max: 0 Pain level now: 0 - Additonal information Additional information: Patient is a 55-year-old male who presents to the emergency department stating that for the past 9 weeks he has had intermittent shortness of breath. Better with albuterol, worse with walking. Also has a mild dry cough. No fevers. No chills. He states he talk to the [facility] today who told him to come here for an x- ray. Review of Systems Constitutional: denies: Fever, Chills Throat: denies: Sore throat Cardiac: denies: Palpitations Respiratory: reports: Dyspnea, Wheezing GI: denies: Abdominal Pain, Vomiting, Diarrhea Skin: denies: Rash Neurologic: denies: Headache PD PAST MEDICAL HISTORY - Past Medical History Cardiovascular: High cholesterol Respiratory: Sleep apnea, CPAP use Neuro: Migraines Endocrine/Autoimmune: None GI: None : None HEENT: Other Psych: Post traumatic stress disorder Musculoskeletal: Chronic back pain Derm: None - Past Surgical History Past Surgical History: No General: Appendectomy, Gastric surgery, Hiatal hernia repair HEENT: Tonsil/Adenoidectomy - Present Medications Home Medications: Ambulatory Orders Medication Instructions Recorded Confirmed Venlafaxine [Effexor] 75 mg PO BID 09/24/16 06/23/17 Meloxicam 15 mg PO DAILY 06/23/17 06/23/17 Naproxen [Naprosyn] 06/23/17 Topiramate [Topamax] 06/23/17 SUMAtriptan [Imitrex] 50 mg PO ONCE 05/23/19 05/23/19 methocarbamoL [Methocarbamol] 05/23/19 Albuterol Sulf [Ventolin Hfa 1 - 2 puffs INH Q4HR PRN #1 inhaler 05/24/21 Inhaler] Benzonatate [Tessalon] 200 mg PO TID PRN #30 cap 05/24/21 Doxycycline Monohydrate 100 mg PO BID #20 cap 05/24/21 Fluticasone/Salmeterol [Advair 1 each IH BID #1 pkg 08/14/21 250-50 Diskus] predniSONE [Deltasone] 40 mg PO DAILY #10 tablet 08/14/21 - Allergies Allergies/Adverse Reactions: Allergies Allergy/AdvReac Type Severity Reaction Status Date / Time simvastatin Allergy Rash Verified 08/14/21 16:06 - Social History Does the pt smoke?: No Smoking Status: Never smoker Does the pt drink ETOH?: No Does the pt have substance abuse?: No - Immunizations Immunizations are current?: No Immunizations: TDAP >10years/unknown - POLST Patient has POLST: No PD ED PE NORMAL - Vitals Vital signs reviewed: Yes - General General: Alert and oriented X 3, No acute distress - HEENT HEENT: PERRL, Moist mucous membranes - Neck Neck: Supple, no meningeal sign - Cardiac Cardiac: RRR, Strong equal pulses - Respiratory Respiratory: No respiratory distress, Clear bilaterally - Abdomen Abdomen: Soft, Non tender, Non distended - Derm Derm: Warm and dry - Neuro Neuro: Alert and oriented X 3 - Psych Psych: Normal mood, Normal affect Results - Vitals Vitals: Vital Signs - 24 hr 08/14/21 08/14/21 08/14/21 16:00 16:45 18:23 Temperature 37.1 C Heart Rate 69 66 62 Respiratory 17 20 18 Rate Blood Pressure 147/94 H 130/83 H O2 Saturation 96 96 97 08/14/21 19:09 Temperature Heart Rate 60 Respiratory Rate Blood Pressure 124/80 O2 Saturation 98 Oxygen O2 Source Room air - EKG (time done) 1553 Rate: Rate (enter#) (66) Rhythm: NSR [place]: Normal Intervals: Normal MS QRS: Normal Ischemia: Non specific changes (flat t wave III, aVF) - Rads (name of study) cxr Radiology: Final report received, EMP read contemporaneously, See rad report (no acute disease) PD MEDICAL DECISION MAKING - ED course Complexity details: reviewed old records, reviewed results, re-evaluated patient, considered differential (No ST elevation [place], no aortic dissection, no PE, no tension pneumothorax, no aortic aneurysm), d/w patient ED course: Patient with dyspnea that improves with albuterol over the past 9 weeks. Associated with a mild cough and occasional wheeze. No acute findings on chest x-ray. Asymptomatic here. Not hypoxic. We will add Advair and prednisone to his regimen and have him follow-up with his doctor for further care. Patient counseled regarding signs and symptoms for which I believe and urgent re- evaluation would be necessary. Patient with good understanding of and agreement to plan and is comfortable going home at this time This document was made in part using voice recognition software. While efforts are made to proofread this document, sound alike and grammatical errors may occur. Departure - Departure Disposition: 01 Home, Self Care Clinical Impression: Wheezing Condition: Good Instructions: ED Reactive Airway Disease Follow-Up: your,doctor in 1week [Other] Prescriptions: Fluticasone/Salmeterol [Advair 250-50 Diskus] 1 each IH BID #1 pkg predniSONE [Deltasone] 40 mg PO DAILY #10 tablet Comments: Your prescriptions were sent to [facility] in [place]. Please follow-up with your doctor for further care. Return if you worsen. Your x-ray does not show any acute abnormalities today. Discharge Date/Time: 08/14/21 19:12
--- NOTE | 2021-08-14 16:37 | XRAY Report ---
PROCEDURE: Chest 2 View X-Ray INDICATIONS: coughx 2 months TECHNIQUE: 2 view(s) of the chest. COMPARISON: None. FINDINGS: Surgical changes and devices: None. Lungs and pleura: No pleural effusions or pneumothorax. Lungs are clear. Mediastinum: Mediastinal contours are normal. Heart size is enlarged. Bones and chest wall: No suspicious bony abnormalities. Old healed fractures involving left posterio r lateral sixth and seventh ribs are seen. Soft tissues appear unremarkable. IMPRESSION: No acute cardiopulmonary pathology. Reviewed by: José Miguel Luna MD on 08/14/2021 4:36 PM PST Approved by: José Miguel Luna MD on 08/14/2021 4:36 PM [facility] Station ID: [id number]
[2021-08-14 19:12] VITALS: BP 124/80
== END 2021-08-14 19:12 | disposition home or self-care (01) ==
LOC: ED 15:43
DX: R06.2 Wheezing (principal); R05.9 Cough, unspecified; R07.89 Other chest pain; Z20.822 Contact with and (suspected) exposure to COVID-19
CPT/HCPCS: 71046; 87635; 93005; 99283; 99284; J7512

== ENCOUNTER 2022-05-15 18:03 | Emergency (ER) | payer OTHER ==
[2022-05-15 18:26] LABS: BASOPHILS # (AUTO) 0.1 10^3/uL (0.0-0.1); BASOPHILS % (AUTO) 1.2 %; EOSINOPHILS # (AUTO) 0.2 10^3/uL (0.0-0.7); EOSINOPHILS % (AUTO) 2.5 %; HCT - HEMATOCRIT 44.2 % (42.0-52.0); HGB - HEMOGLOBIN 14.9 g/dL (14.0-18.0); LYMPHOCYTES # (AUTO) 2.1 10^3/uL (1.5-3.5); LYMPHOCYTES % (AUTO) 31.3 %; MEAN CORPUSCULAR HEMOGLOBIN 29.9 pg (27.0-31.0); MEAN CORPUSCULAR HGB CONC 33.7 g/dL (32.0-36.0); MEAN CORPUSCULAR VOLUME 88.8 fL (80.0-94.0); MEAN PLATELET VOLUME 10.5 fL (7.4-11.4); MONOCYTES # (AUTO) 0.6 10^3/uL (0.0-1.0); MONOCYTES % (AUTO) 9.2 %; NEUTROPHILS # (AUTO) 3.7 10^3/uL (1.5-6.6); NEUTROPHILS % (AUTO) 55.7 %; PLT - PLATELET COUNT 280 10^3/uL (130-450); RED BLOOD COUNT 4.98 10^6/uL (4.70-6.10); RED CELL DISTRIBUTION WIDTH 13.8 % (12.0-15.0); WHITE BLOOD COUNT 6.7 x10^3/uL (4.8-10.8)
[2022-05-15] MEDS ORDERED: ASPIRIN 325 MG TABLET PO STA (18:39)
[2022-05-15] MEDS ORDERED: NITROGLYCERIN SL 0.4 MG TABLET SL STA (18:39)
[2022-05-15 18:41] LABS: ALBUMIN 4.4 g/dL (3.2-5.5); ALBUMIN/GLOBULIN RATIO 1.3 (1.0-2.2); BILIRUBIN,TOTAL 0.8 mg/dL (0.2-1.0); CALCIUM 9.6 mg/dL (8.5-10.3); TOTAL PROTEIN 7.8 g/dL (6.7-8.2)
--- NOTE | 2022-05-15 18:42 | ED Physician Documentation ---
History of Present Illness - Stated complaint Stated Complaint: CHEST PX - Chief complaint Chief Complaint: Cardiac - Additonal information Additional information: 56-year-old male presents emergency department for evaluation of left-sided ch est pain. Symptoms began last night. Lasted around 20 minutes. He describes a sharp stabbing sensation. No associated nausea or vomiting or epigastric upset. Does not radiate. Patient had been feeling well today until the symptoms began now about an hour and a half ago thus he presents to the ER for repeat evaluation. No syncope No tobacco use. Former heavy drinker though he quit about 5 years ago. Denies a history of hypertension or diabetes but does have hyperlipidemia for which she is on a statin. He has had no fevers, cough. Denies any dyspnea. Review of Systems Constitutional: denies: Fever, Chills Eyes: reports: Reviewed and negative Ears: reports: Reviewed and negative Nose: reports: Rhinorrhea / runny nose Throat: reports: Reviewed and negative Cardiac: reports: Chest pain / pressure. denies: Palpitations Respiratory: reports: Reviewed and negative GI: reports: Reviewed and negative : reports: Reviewed and negative Skin: reports: Reviewed and negative PD PAST MEDICAL HISTORY - Past Medical History Cardiovascular: High cholesterol Respiratory: Sleep apnea, CPAP use Neuro: Migraines Endocrine/Autoimmune: None GI: None : None HEENT: Other Psych: Post traumatic stress disorder Musculoskeletal: Chronic back pain Derm: None - Past Surgical History Past Surgical History: No General: Appendectomy, Gastric surgery, Hiatal hernia repair HEENT: Tonsil/Adenoidectomy - Present Medications Home Medications: Ambulatory Orders Medication Instructions Recorded Confirmed Venlafaxine [Effexor] 75 mg PO BID 09/24/16 06/23/17 Meloxicam 15 mg PO DAILY 06/23/17 06/23/17 Naproxen [Naprosyn] 06/23/17 Topiramate [Topamax] 06/23/17 SUMAtriptan [Imitrex] 50 mg PO ONCE 05/23/19 05/23/19 methocarbamoL [Methocarbamol] 05/23/19 Albuterol Sulf [Ventolin Hfa 1 - 2 puffs INH Q4HR PRN #1 inhaler 05/24/21 Inhaler] Benzonatate [Tessalon] 200 mg PO TID PRN #30 cap 05/24/21 Doxycycline Monohydrate 100 mg PO BID #20 cap 05/24/21 Fluticasone/Salmeterol [Advair 1 each IH BID #1 pkg 08/14/21 250-50 Diskus] predniSONE [Deltasone] 40 mg PO DAILY #10 tablet 08/14/21 - Allergies Allergies/Adverse Reactions: Allergies Allergy/AdvReac Type Severity Reaction Status Date / Time simvastatin AdvReac Rash Verified 05/15/22 18:07 - Social History Does the pt smoke?: No Smoking Status: Never smoker Does the pt drink ETOH?: No Does the pt have substance abuse?: No - Immunizations Immunizations are current?: No Immunizations: TDAP >10years/unknown - POLST Patient has POLST: No PD ED PE NORMAL - General General: Alert and oriented X 3, No acute distress - HEENT HEENT: PERRL - Neck Neck: Supple, no meningeal sign, No adenopathy - Cardiac Cardiac: RRR, No murmur, No gallop - Respiratory Respiratory: No respiratory distress, Clear bilaterally - Abdomen Abdomen: Normal bowel sounds, Soft, Non tender - Derm Derm: Normal color, Warm and dry - Extremities Extremities: No deformity, No tenderness to palpate, Normal ROM s pain - Neuro Neuro: Alert and oriented X 3, 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 Eye Opening: Spontaneous Motor: Obeys Commands Verbal: Oriented GCS Score: 15 Results - Vitals Vitals: Vital Signs - 24 hr 05/15/22 05/15/22 05/15/22 18:07 18:32 18:47 Temperature 36.5 C Heart Rate 76 66 70 Respiratory 16 20 24 Rate Blood Pressure 153/96 H 166/97 H O2 Saturation 97 97 96 Oxygen O2 Source Room air - EKG (time done) 1805 Rate: Rate (enter#) (68) Rhythm: NSR [place]: Normal, RAD QRS: Normal, LVH, Poor R wave progression Ischemia: Q waves Compare to prior EKG: Unchanged from prior EKG Computer interpretation: Agree with computer - Labs Labs: Laboratory Tests 05/15/22 05/15/22 05/15/22 18:19 18:19 18:19 WBC 6.7 RBC 4.98 Hgb 14.9 Hct 44.2 MCV 88.8 MCH 29.9 MCHC 33.7 RDW 13.8 Plt Count 280 MPV 10.5 Neut # (Auto) 3.7 Lymph # (Auto) 2.1 [place] # (Auto) 0.6 Eos # (Auto) 0.2 Baso # (Auto) 0.1 Absolute Nucleated RBC 0.00 Nucleated RBC % 0.0 Sodium 141 Potassium 4.0 Chloride 107 Carbon Dioxide 26 Anion Gap 8.0 BUN 18 Creatinine 1.0 Estimated GFR (MDRD) 77 L Glucose 107 H Calcium 9.6 Total Bilirubin 0.8 AST 19 ALT 28 Alkaline Phosphatase 51 Troponin I High Sens 3.5 Total Protein 7.8 Albumin 4.4 Globulin 3.4 Albumin/Globulin Ratio 1.3 Lipase 43 - Rads (name of study) cxr Radiology: Final report received (Unchanged mild cardiomegaly. No evidence of acute pulmonary process) PD MEDICAL DECISION MAKING - ED course Complexity details: reviewed results, re-evaluated patient, considered differential, d/w patient ED course: 56-year-old male presents emergency department for evaluation of left-sided chest pain. Symptoms began last night were described as sharp and lasted about 20 minutes. They began again today about an hour and half prior to arrival. He denies a history of hypertension or previous [place]. He is a former smoker. Takes Lipitor only. His EKG today is nonischemic though he does have Q waves in the inferior leads. This is unchanged from an EKG completed in 2020. Here in the emergency department he was given a dose of nitroglycerin as well as aspirin though there was no change in his symptoms. CBC was without worrisome findings. His troponin is negative. This gentleman does have a heart score of 3 Indicating low risk for MACE. Patient is advised very close follow-up with his primary care provider. He should be referred for an emergent echocardiogram and stress test. He will follow-up with his primary care provider tomorrow via phone. Emergent return precautions otherwise discussed Departure - Departure Disposition: 01 Home, Self Care Clinical Impression: Chest pain Qualifiers: Chest pain type: unspecified Qualified Code(s): R07.9 - Chest pain, unspecified Condition: Stable Record reviewed to determine appropriate education?: Yes Instructions: ED Chest Pain Atypical Unkn Cause Follow-Up: Provider,Other [Primary Care Provider] - Comments: Felipe astudillo are seen today in the emergency department for evaluation of chest pain. You have had 2 episodes in the last 24 hours. Today your EKG is essentially unchanged from the one completed in 2020. However there are what we call Q waves in the inferior leads. These findings typically indicate that somebody has had a heart attack in the remote past. Today your labs including a troponin were essentially negative. It is important you discuss this ED visit with your primary care doctor tomorrow. You should be referred for an emergent stress test and echocardiogram. If at any point your symptoms worsen, you develop severe crushing chest pain, have uncontrolled nausea sweating or any syncopal episodes then please return immediately to the ER
--- NOTE | 2022-05-15 18:52 | XRAY Report ---
PROCEDURE: Chest 1 View X-Ray INDICATIONS: Chest Pain TECHNIQUE: One view of the chest was acquired. COMPARISON: 08/14/2021 FINDINGS: Surgical changes and devices: None. Lungs and pleura: No pleural effusions or pneumothorax. Lungs are clear. Mediastinum: Mediastinal contours appear normal. Unchanged mild cardiomegaly. Bones and chest wall: No suspicious bony lesions. Overlying soft tissues appear unremarkable. IMPRESSION: Unchanged mild cardiomegaly. No evidence acute pulmonary process. Reviewed by: Robi Gutierres MD on 05/15/2022 6:50 PM PDT Approved by: Robi Gutierres MD on 05/15/2022 6:50 PM PDT Station ID: [id number]
[2022-05-15 19:39] VITALS: BP 144/90
== END 2022-05-15 19:59 | disposition home or self-care (01) ==
LOC: ED 18:03
DX: R07.9 Chest pain, unspecified (principal)
CPT/HCPCS: 36415; 71045; 80053; 83690; 84484; 85025; 93005; 99284; A9270